=== PATIENT | male | born 2005 | race Caucasian/White ===

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

== ENCOUNTER 2023-08-05 15:43 | Emergency (ER) | payer BC, SELFPAY ==
[2023-08-05 15:44] VITALS: BP 139/65; PULSE 135; RESP 16; TEMP 38; O2SAT 97; BMI 43.1
--- NOTE | 2023-08-05 16:29 | EDS_ITS ---
HPI History of Present Illness Chief Complaint: Abscess Informant: patient Onset/Context/Timing Onset: Days (4 to 5 days) Context: Gradual Onset Current Severity: Moderate Maximum Severity: Moderate Narrative Narrative: Patient presents secondary to pilonidal cyst. He noted some pain over his tailbone area that started on Friday. It is progressively worsened to the point where it was quite painful today at work. He went to urgent care and was noted to have a temperature of 100.3. He was sent to the emergency room. Patient states he does not feel fevers and did not realize he had a temperature. [facility] Medical History (Updated 08/05/23 @ 17:[address] Silvia Ma MD) Herpes Home Medications cephalexin 500 mg capsule 500 mg PO Q6 #40 CAPSULES 08/05/23 [Rx Last Taken Unknown] hydrocodone-acetaminophen 5-325mg 5mg-325mg 1 tab PO Q6H PRN PRN Pain 3 days #10 TABLETS 08/05/23 [Rx Last Taken Unknown] sulfamethoxazole 800 mg-trimethoprim 160 mg tablet (Bactrim DS) 1 tab PO BID #20 tabs 08/05/23 [Rx Last Taken Unknown] Allergy/AdvReac Type Severity Reaction Status Date / Time No Known Allergies Allergy Verified 08/05/23 15:45 Social History Smoking Status: Never smoker ROS ROS ED Constitutional Constitutional ED: Denies chills Eyes Eyes: Denies change in vision or discharge from eye(s) ENT ENT ED: Denies discharge from eye(s), rhinorrhea or sore throat Cardiovascular Cardiovascular: Denies chest pain Respiratory/Chest Respiratory/Chest: Denies cough or dyspnea Gastrointestinal Gastrointestinal: Denies abdominal pain, nausea or vomiting Genitourinary Genitourinary ED: Denies dysuria Musculoskeletal Musculoskeletal: Reports back pain; Denies extremity pain Integumentary Reports abscess; Denies Abrasions or rash Neurologic Neurologic: Denies headache(s) or weakness Psychiatric Psychiatric: Denies anxiety or depression Allergic/Immunologic Allergic/Immunologic ED: Denies lip swelling or urticaria EXAM Physical Exam Const Vital Signs: 08/05/23 15:44 Temperature 100.4 F H Temperature Source Oral Pulse Rate 135 H Respiratory Rate 16 Blood Pressure 139/65 H Blood Pressure Mean 89 Pulse Ox 97 Oxygen Delivery Method Room Air Positive well nourished and well developed General Appearance ED: well developed HEENT Reports moist mucous membranes Eyes EOMs intact bilaterally Chest Wall inspection of chest normal and palpation of chest normal Resp normal respiratory effort and clear to auscultation bilaterally Cardio regular rate and regular rhythm GI non-tender Palpation: soft Back/Spine Back/Spine Narrative: 5 x 7 cm pilonidal cyst with overlying erythema. Extremity normal to inspection Neuro oriented x3 and no sensory deficits noted Motor Exam: strength 5/5 throughout Psych mental status grossly normal MDM MDM MDM Narrative Medical decision making narrative: Patient be treated with Bactrim and Keflex, first dose is given here. Let applied to the pilonidal cyst topically. After let had been on the wound for approximately 25 minutes, 2 cc 1% lidocaine is infused locally. Wound is cleansed. Incision is made with a #11 blade with return of pus and blood. Wound is irrigated and cleansed. Dressing applied. Patient be given prescriptions for Bactrim, Keflex, and [place]. He is referred to Dr. Donald for follow-up. He will be given a work note for tomorrow. Discharge Plan Triage Chief Complaint: Abscess ED Provider: Silvia Ma Dx/Rx/DC Orders Clinical Impression: Pilonidal cyst with abscess Instructions: ED Pilonidal Cyst Infec I&D Prescriptions: New sulfamethoxazole-trimethoprim [Bactrim DS] 800-160 mg tablet 1 tab PO BID Qty: 20 0RF cephalexin 500 mg capsule 500 mg PO Q6 Qty: 40 0RF hydrocodone-acetaminophen 5-325 mg tablet 1 tab PO Q6H PRN PRN (Reason: Pain) 3 Days Qty: 10 0RF Stand Alone Forms: ED Work / School Excuse Primary Care Provider: Sae Odell Referrals: Kuldeep Donald MD [Med Staff - Active Staff] - 1 Week Sae Odell MD [Primary Care Provider] - Disposition Disposition: Home, Self Care
[2023-08-05] MEDS: Smz/Tmp Ds Tablet 1 TABLET PO (16:35)
[2023-08-05] MEDS: Lidocaine/Epi/Tetracaine 50 ML 1 APPLIC TOPICAL (16:35)
[2023-08-05] MEDS: Cephalexin 500 MG Capsule PO (16:35)
[2023-08-05] MEDS: Lidocaine 1% (20 ml mdv) 20 ML Vial INFILT (16:36)
[2023-08-05] MEDS: HYDROcodone Bitartrate/Apap 5/325 Tablet PO (17:31)
[2023-08-05 17:35] VITALS: BP 139/65; PULSE 135; RESP 16; TEMP 37.8; O2SAT 97
--- OUTSIDE RECORDS SUMMARY | 2023-08-05 20:49 | XMS RPT_ITS | CCD ---
Author Name Unknown Address [address] [place] [address] Organization [facility] Results Test Name Value Interpretation Reference Range Facil ity Progress note 12-24-2020 Note Date & Type Note Facility 12-24-2020 Note HNO ID: [id number] Author: Jackson Harper APRN.DAVID Service: ? Author Type: Nurse Practitioner Type: Progress Notes Filed: 12/24/2020 2:05 PM Note Text: Triaged patient in room Was bit by a dog this morning in the left hand. They dog is a neighbors up the street who does not care for the dog. They are unsure if the dog is up to date on shots. Dog was not provoked. He is up to date on tetanus Virtualist production material coordinator was contacted, Dr. Julieta Ibrahim, and situation was discussed. Recommend patient go to ER for Rabies treatment. Gas Load Dispatcher to obtain dog tomorrow Patient and his mother agree, will go to [place] ER for management [facility] Progress note 12-24-2020 Note Date & Type Note Facility 12-24-2020 Note HNO ID: [id number] Author: Julieta Ibrahim MD Service: ? Author Type: Physician Type: Progress Notes Filed: 12/24/2020 1:55 PM Note Text: Virtualist Progress Note Triage Call Triage source: Express Care Mode of contact (phone call, MobileAds, USINE IO, Express [facility] Online, Skype, other): Prashanth Dorman [employer] CONSULTANT History/Physical Exam: 15 year old bitten by a dog neighbor's dog, unknown if up to date on shots dog lunged at him and bit him in the hand patient is UTD on tetanus Nurse Triage Disposition (If call is from [facility] Home Care, [facility] nurse triage, or an Express Care, the disposition is Go to ED Now ): Go to ED Now Plan discussed with ORACLE EBS CONSULTANT, check with public health about impounding the dog and checking on the dog''s healthcare re shots record there are 2 options: wait a few days until info becomes available re the dogs' rabies status then initiate the antirabies treatment for the patient or start the antirabies treatment today and then the treatment can be stopped once the info is known if the dog is rabies free The antirabies treatment is not that painful (a shot) and can be stopped recommend the [employer] E[employer] CONSULTANT talk to the local ED to see if they have the medication available and do a report to public [facility] Downgrade: No Virtualist Recommended Disposition: See Provider Today Remove COVID19 association SIGNATURE: Julieta Ibrahim MD PATIENT NAME: Jatin Reyes DATE: December 24, 2020 Pager/Phone: [phone] [facility] Clinical Note 12-24-2020 Note Date & Type Note Facility 12-24-2020 Note Patient Outreach ([place] [facility]) YUMIKOJATIN D ([id number]) 1 M Date Time Provider Department 12/24/20 JULIETA IBRAHIM VTRIAG During your visit today, we recorded the following information about you: Julieta Ibrahim MD 12/24/2020 1:55 PM Signed Virtualist Progress Note Triage Call Triage source: Express Care Mode of contact (phone call, MobileAds, USINE IO, Express [facility] Online, Everpay, other): Prashanth Dorman [employer] CONSULTANT History/Physical Exam: 15 year old bitten by a dog neighbor's dog, unknown if up to date on shots dog lunged at him and bit him in the hand patient is UTD on tetanus Nurse Triage Disposition (If call is from [facility] Home Care, [facility] nurse triage, or an Express Care, the disposition is Go to ED Now ): Go to ED Now Plan discussed with [employer] EBS CONSULTANT, check with public health about impounding the dog and checking on the dog''s healthcare re shots record there are 2 options: wait a few days until info becomes available re the dogs' rabies status then initiate the antirabies treatment for the patient or start the antirabies treatment today and then the treatment can be stopped once the info is known if the dog is rabies free The antirabies treatment is not that painful (a shot) and can be stopped recommend the [employer] E[employer] CONSULTANT talk to the local ED to see if they have the medication available and do a report to public health Downgrade: No Virtualist Recommended Disposition: See Provider Today Remove COVID19 association SIGNATURE: Julieta Ibrahim MD PATIENT NAME: Jatin Reyes DATE: December 24, 2020 Pager/Phone: [phone] Allergies As of Date: 12/24/2020 (No Known Allergies) Date Reviewed: 12/12/2020 Reviewed by: Delilah Sanchez LPN - Fully Assessed Reason for Visit: Virtualist [[id number]] Prescriptions as of 12/24/2020 - IBUPROFEN ORAL Take by mouth. Problem List As Of Date: 12/24/2020 (None) Encounter Status:Closed by JULIETA IBRAHIM on 12/24/20 [facility] Progress note 12-12-2020 Note Date & Type Note Facility 12-12-2020 Note HNO ID: [id number] Author: Rick Good APRN.DOSIMETRIST Service: ? Author Type: Nurse Practitioner Type: Progress Notes Filed: 12/12/2020 4:47 PM Note Text: Subjective HPI HPI Jatin Reyes is a 15 year old male who presents today for CC of rash on forehead. This started 1 day ago. Has tried nothing for relief. Symptoms are worsened by nothing. 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 Last treated 2 months ago, required ER visit d/t eye involvement. Has done well on Valtrex in past. Denies eye pain, vision change. Denies sore throat, ear pain, fever. .Patient presents with: herpes outbreak on face: started today and needs RX for valtrex History reviewed. No pertinent past medical history. No past surgical history on file. ALLERGIES Patient has no known allergies. -This section reviewed with patient, no changes MEDICATIONS IBUPROFEN ORAL Take by mouth. valACYclovir (VALTREX) 1 gram Take 1 tablet by mouth three times daily for 7 days. No family history on file. Social History Tobacco Use - Smoking status: Passive Smoke Exposure - Never Smoker - Smokeless tobacco: Never Used Substance Use Topics - Alcohol use: Not on file - Drug use: Not on file ROS Objective Blood pressure 122/80, pulse 72, temperature 36.5 ?C (97.7 ?F), temperature source Tympanic, resp. rate 16, weight 113.9 kg (251 lb), SpO2 97 %. Physical Exam Constitutional: General: He is not in acute distress. Appearance: He is not toxic-appearing or diaphoretic. HENT: Head: Normocephalic and atraumatic. Right Ear: Hearing, tympanic membrane, ear canal and external ear normal. Left Ear: Hearing, tympanic membrane, ear canal and external ear normal. Nose: Nose normal. Mouth/Throat: Pharynx: Uvula midline. Eyes: General: Lids are normal. No scleral icterus. Right eye: No discharge. Left eye: No discharge. Conjunctiva/sclera: Conjunctivae normal. Pupils: Pupils are equal, round, and reactive to light. Neck: Trachea: Trachea normal. Pulmonary: Effort: Pulmonary effort is normal. Musculoskeletal: Cervical back: Normal range of motion and neck supple. Lymphadenopathy: Cervical: No cervical adenopathy. Skin: Findings: No rash. Neurological: Mental Status: He is alert and oriented to person, place, and time. 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 -use medication as prescribed -follow up if symptoms persist, worsen, change - VALACYCLOVIR 1 GRAM TABLET Mother agrees to plan Rick Good APRN.DAVID [facility] Summary Purpose Family History No Family History Records FoundNo Family History Records Found Advance Directives No Advanced Directives Records FoundNo Advanced Directives Records Found Additional Source Comments (unrecognized sect ion and content) No Status Records FoundNo Status Records Found INFORMATION SOURCE (unrecogn ized section and content) DATE CREATED AUTHOR AUTHOR'S CHARMAINE TORRES 08/08/2021 [facility] FOR RECORDS PERTAINING TO PATIENTS WHO ARE OR HAVE BEEN ENROLLED IN A CHEMICAL DEPENDENCY/SUBSTANCEABUSE PROGRAM, SOME INFORMATION MAY BE OMITTED. This clinical summary was aggregated from multiple sources. Caution should be exercised in using it in the provision of clinical care. This summary normalizes information from multiple sources, and as a consequence, information in this document may materially change the coding, format and clinical context of patient data. In addition, data may be omitted in some cases. CLINICAL DECISIONS SHOULD BE BASED ON THE PRIMARY CLINICAL RECORDS. [facility]. provides no warranty or guarantee of the accuracy or completeness of information in this document.
== END 2023-08-05 17:38 | disposition home or self-care (01) ==
PROVIDERS: Emergency Provider Emergency Medicine; PCP Pediatrics; Visit Provider Emergency Medicine
DX: L05.01 Pilonidal cyst with abscess (principal)
CPT/HCPCS: 10080; 99283